=== PATIENT | female | born 1945 | race Caucasian/White ===

== ENCOUNTER → 2017-10-01 | Outpatient (CLI) | payer MEDICARE, OTHER ==
[~2017-10-01] MED LIST: ALEVE220 MG PO; CIPRO500 MG PO; FLAGYL500 MG PO; HYDROCODONE-AP1 EAC6 PO; LEVOTHYROXINE 0.1 MG PO; LEVOTHYROXINE PO; MELATONIN5 M1 PO; METOCLOPRAMIDE10 MG; NORCO 5-325 TA1 EACH; ONDANSETRON HCL4 M2 PO; TYLENOL PM PO
== END ==
LOC: M.RAD 14:46
DX: M70.62 Trochanteric bursitis, left hip (principal); M47.896 Other spondylosis, lumbar region; M51.36 Other intervertebral disc degeneration, lumbar region

== ENCOUNTER → 2017-10-08 | Outpatient (CLI) | payer MEDICARE, OTHER | LOC: M.RAD 15:03 | DX: M85.88 Other specified disorders of bone density and structure, other site (principal); N91.2 Amenorrhea, unspecified; Z78.0 Asymptomatic menopausal state ==

== ENCOUNTER 2018-07-11 13:15 | Emergency (ER) | payer MEDICARE, OTHER ==
[~2018-07-11] VITALS: Ht 170.2 cm; Wt 83.9 kg
[2018-07-11] MEDS ORDERED: CELEXA10 MG PO (13:28)
[2018-07-11 14:21] LABS: INFLUENZA A ANTIGEN None Detected (None Detect); INFLUENZA B ANTIGEN None Detected (None Detect)
[2018-07-11] MEDS ORDERED: LEVAQUIN 500 M500 M2 PO ×2 (14:23→14:25)
[2018-07-11] MEDS ORDERED: MEDROLDOSEPACK PO ×2 (14:23→14:25)
[2018-07-11] MEDS ORDERED: PROAIR HFA8.5 GM INH (14:25)
[2018-07-11] MEDS ORDERED: PROMETHAZINE V120 ML PO (14:25)
[2018-07-11 15:10] VITALS: BP 153/78
== END 2018-07-11 15:10 | disposition home or self-care (01) ==
LOC: M.ERS 13:15
PROVIDERS: Physician Assistant
DX: J18.9 Pneumonia, unspecified organism (principal); E03.9 Hypothyroidism, unspecified; M81.0 Age-related osteoporosis without current pathological fracture; M79.7 Fibromyalgia; Z88.5 Allergy status to narcotic agent; Z88.0 Allergy status to penicillin; Z88.2 Allergy status to sulfonamides; Z88.8 Allergy status to other drugs, medicaments and biological substances; Z96.651 Presence of right artificial knee joint; Z85.3 Personal history of malignant neoplasm of breast

== ENCOUNTER → 2020-11-08 | Outpatient (CLI) | payer MEDICARE, OTHER ==
[~2020-11-08] MED LIST changes: +CELEXA10 MG PO; +LEVAQUIN 500 M500 M2 PO; +MEDROLDOSEPACK PO; +PROAIR HFA8.5 GM INH; +PROMETHAZINE V120 ML PO
== END ==
LOC: M.RAD 09:00
PROVIDERS: ATTEND Family Medicine
DX: M85.88 Other specified disorders of bone density and structure, other site (principal); M81.0 Age-related osteoporosis without current pathological fracture